=== PATIENT | female | born 1955 | race Caucasian/White ===

== ENCOUNTER 2022-03-06 13:58 | Emergency (ER) | payer OTHER, MEDICARE ==
[~2022-03-06] VITALS: Ht 167.6 cm; Wt 107.4 kg
[2022-03-06] MEDS ORDERED: ATOR1TAB19 PO (14:09)
[2022-03-06] MEDS ORDERED: HYDR12.55 PO (14:09)
[2022-03-06] MEDS ORDERED: AMLO25TA PO (14:09)
[2022-03-06] MEDS ORDERED: LOSA25TA13 PO (14:09)
[2022-03-06 18:06] VITALS: BP 139/89
== END 2022-03-06 18:13 | disposition home or self-care (01) ==
LOC: M ED 13:58
DX: S89.91XA Unspecified injury of right lower leg, initial encounter (principal); X50.0XXA Overexertion from strenuous movement or load, initial encounter; Y92.009 Unspecified place in unspecified non-institutional (private) residence as the place of occurrence of the external cause; Y93.9 Activity, unspecified; Y99.9 Unspecified external cause status; M25.761 Osteophyte, right knee; M17.11 Unilateral primary osteoarthritis, right knee; I10 Essential (primary) hypertension; E78.5 Hyperlipidemia, unspecified; F41.9 Anxiety disorder, unspecified; Z79.899 Other long term (current) drug therapy

== ENCOUNTER 2023-01-05 08:53 | Emergency (ER) | payer MEDICARE, OTHER ==
[~2023-01-05] VITALS: Ht 167.6 cm; Wt 106.8 kg
[~2023-01-05 08:53] MED LIST: AMLO25TA PO; ATOR1TAB19 PO; HYDR12.55 PO; LOSA25TA13 PO
[2023-01-05] MEDS ORDERED: BOOSTRIX/ADACEL VACCINE (DIPHTH/PERTUSS/ACELL/TETANUS) 0.5ML SYR IM ONE (10:35)
[2023-01-05] MEDS ORDERED: DOXYCYCLINE HYCLATE 100MG TABLET PO ONE (10:35)
[2023-01-05] MEDS ORDERED: DOXY-443 PO (11:27)
[2023-01-05 11:37] VITALS: BP 140/86
== END 2023-01-05 11:40 | disposition home or self-care (01) ==
LOC: M ED 08:53
DX: S91.331A Puncture wound without foreign body, right foot, initial encounter (principal); Y92.099 Unspecified place in other non-institutional residence as the place of occurrence of the external cause; J45.909 Unspecified asthma, uncomplicated; Z79.899 Other long term (current) drug therapy

== ENCOUNTER → 2025-01-15 | Outpatient (CLI) | payer MEDICARE, OTHER ==
[~2025-01-15] MED LIST changes: +DOXY-441 PO
== END ==
LOC: M SOG 13:12
PROVIDERS: ATTEND Physician Assistant
DX: M19.011 Primary osteoarthritis, right shoulder (principal)